=== PATIENT | male | born 1995 | race Caucasian/White ===

== ENCOUNTER → 2023-12-23 | Emergency (ER) | payer MEDICAID, OTHER ==
[~2023-12-23] VITALS: Ht 172.7 cm; Wt 81.6 kg
[~2023-12-23] MED LIST: ACET-2605 PO; KETOROLAC TROMETHAMINE 15 MG/ML VIAL ONE; NAPR-1164 PO
[2023-12-23 18:35] VITALS: BP 128/64; TEMP 98.3; O2SAT 98
[2023-12-23] MEDS: KETOROLAC TROMETHAMINE 15 MG/ML VIAL IM ONE (20:01)
== END | disposition home or self-care (01) ==
LOC: ER 18:19
DX: S80.01XA Contusion of right knee, initial encounter (principal); Z60.2 Problems related to living alone; V86.56XA Driver of dirt bike or motor/cross bike injured in nontraffic accident, initial encounter; Y93.55 Activity, bike riding; Y92.89 Other specified places as the place of occurrence of the external cause; Y99.8 Other external cause status
CPT/HCPCS: 73564-TC; J1885